=== PATIENT | male | born 1930 | race Asian ===

== ENCOUNTER 2018-07-03 14:47 | Emergency (ER) | payer OTHER ==
[2018-07-03] MEDS ORDERED: NORepinephrine 8MG/250 ML (PMX 250 ML IV (15:00)
[2018-07-03] MEDS ORDERED: DOPamine-D5W 1.6 MG/ML 250 ML IV (15:00)
[2018-07-03] MEDS: SODIUM CHLORIDE 0.9% 1L BAG IV* (15:00)
[2018-07-03] MEDS: NORepinephrine 8MG/250 ML (PMX 250 ML IV (15:30)
[2018-07-03 15:46] LABS: WHITE BLOOD COUNT 15.6 10^3/ul (4.8-10.8)
[2018-07-03 15:46] LABS: ABNORMAL IP MESSAGE 1; HEMATOCRIT 27.8 % (42.0-52.0); HEMOGLOBIN 7.8 g/dl (14.0-18.0); MEAN CORPUSCULAR HEMOGLOBIN 30.1 pg (29.0-33.0); MEAN CORPUSCULAR HGB CONC 28.1 g/dl (32.0-37.0); MEAN CORPUSCULAR VOLUME 107.3 fl (82.0-101.0); NUCLEATED RED BLOOD CELLS% 0.2 /100WBC (0.0-0.0); PLATELET COUNT 280 10^3/UL (140-415); POSITIVE DIFF @See below; RED BLOOD COUNT 2.59 10^6/ul (4.70-6.10)
[2018-07-03 15:48] LABS: ADD MAN DIFF? YES
[2018-07-03 16:06] LABS: ALANINE AMINOTRANSFERASE 54 IU/L (13-69); ALBUMIN 2.8 g/dl (3.3-4.9); ALBUMIN/GLOBULIN RATIO 0.68; ALKALINE PHOSPHATASE 92 IU/L (42-121); ANION GAP 19 (5-13); BILIRUBIN,INDIRECT 0.3 mg/dl (0-1.1); BILIRUBIN,TOTAL 0.3 mg/dl (0.2-1.3); BLOOD UREA NITROGEN 48 mg/dl (7-20); CALCIUM 8.4 mg/dl (8.4-10.2); CARBON DIOXIDE 28 mmol/L (21-31); CHLORIDE 99 mmol/L (97-110); CREATININE 0.92 mg/dl (0.61-1.24); LIPASE 319 U/L (23-300); MAGNESIUM 2.8 mg/dl (1.7-2.5); PHOSPHORUS 7.8 mg/dl (2.5-4.9); POTASSIUM 3.3 mmol/L (3.5-5.1); SODIUM 146 mmol/L (135-144); TOTAL PROTEIN 6.9 g/dl (6.1-8.1)
[2018-07-03 16:09] LABS: INR 1.25; PROTIME 15.8 Sec (11.9-14.9); PT RATIO 1.2
[2018-07-03 16:10] LABS: BAND NEUTROPHILS #M 5.4 10^3/ul (0.0-0.6); BAND NEUTROPHILS % (M) 35 % (0-4); ERYTHROBLAST% (NRBC) (M) 1 % (0-0); HYPOCHROMASIA 1+ (0-0); LYMPHOCYTES #M 0.1 10^3/ul (0.8-2.9); LYMPHOCYTES % (M) 1 % (15-51); METAMYELOCYTES #M 0.4 10^3/ul (0.0-0.0); METAMYELOCYTES %M 3 % (0-0); MONOCYTE #M 0.6 10^3/ul (0.3-0.9); MONOCYTES % (M) 4 % (0-11); MYELOCYTES #M 0.4 10^3/ul (0.0-0.0); MYELOCYTES % (M) 3 % (0-0); PARTIAL THROMBOPLASTIN TIME 32.9 Sec (23.0-35.0); PLATELET ESTIMATE NORMAL; POLYCHROMASIA 1+ (0-0); SEG NEUT #M 9.3 10^3/ul (1.6-7.5); SEGMENTED NEUTROPHILS (M) % 54 % (39-77); SMUDGE%M 1 % (0-0)
[2018-07-03 16:11] LABS: GLUCOSE 28 mg/dl (70-220)
[2018-07-03] MEDS ORDERED: DEXTROSE 50% 50 ML SYRINGE (16:12)
[2018-07-03 16:13] LABS: ASPARTATE AMINO TRANSFERASE 101 IU/L (15-46)
[2018-07-03 16:14] LABS: TROPONIN-I 0.067 ng/ml (0.000-0.120)
[2018-07-03] MEDS: DEXTROSE 50% 50 ML SYRINGE IV (16:15)
[2018-07-03 16:23] LABS: AADO2 Arterial 586.7 mmHg (7.0-24.0); Allen Test ACCEPTAB; Arterial Base Excess 2.4 mmol/L (-3.0-3); Arterial Blood Gas Oxygen Sat 83.9 mmHG (95.0-100.0); Arterial COHb 0.2 % (0.0-3.0); Arterial Fraction of Oxyhgb 83.5 % (93.0-99.0); Arterial HCO3 30.2 mmol/L (22.0-26.0); Arterial MetHb 0.3 % (0.0-1.5); MODE VENT - AC; Site Left Radial
[2018-07-03 16:33] LABS: LACTIC ACID 13.8 mmol/L (0.5-2.0)
[2018-07-03] MEDS ORDERED: SOD CHLORIDE 0.9% 0 ML IV (16:36)
[2018-07-03] MEDS: CEFEPIME 2GM/50 ML (PMX) 50 ML IVPB (16:55)
[2018-07-03] MEDS: PROPOFOL 100 ML IV (17:02)
[2018-07-03] MEDS: VANCOMYCIN 1 GM (PMX) 250 ML IVPB (17:28)
[2018-07-03] MEDS: FENTAnyl 50 MCG/ML VIAL IV (17:28)
[2018-07-03] MEDS ORDERED: FENTAnyl 50 MCG/ML VIAL IV (17:30)
[2018-07-03] MEDS: FENTAnyl (DRIP) 1000 mcg/100mL 100 ML IV (17:41)
[2018-07-03] MEDS: MIDAZOLAM 1 MG/ML 2 ML INJ IV (18:55)
[2018-07-03] MEDS: MIDAZOLAM (DRIP) 50 mg/50 mL 50 ML IV (19:17)
[2018-07-03 20:05] LABS: LACTIC ACID 15.4 mmol/L (0.5-2.0)
== END 2018-07-03 22:16 | disposition expired ==
LOC: E/R 14:47
DX: I46.9 Cardiac arrest, cause unspecified (principal); R65.21 Severe sepsis with septic shock; A41.9 Sepsis, unspecified organism; J18.9 Pneumonia, unspecified organism; D64.9 Anemia, unspecified; J96.20 Acute and chronic respiratory failure, unspecified whether with hypoxia or hypercapnia; G20 Parkinson's disease; E16.2 Hypoglycemia, unspecified; R40.2112 Coma scale, eyes open, never, at arrival to emergency department; R40.2212 Coma scale, best verbal response, none, at arrival to emergency department; R40.2312 Coma scale, best motor response, none, at arrival to emergency department; Z87.891 Personal history of nicotine dependence
CPT/HCPCS: 36415; 36600; 70450; 71045; 80053; 82803; 82962; 83605; 83690; 83735; 84100; 84484; 85025; 85610; 85730; 86850; 86900; 86901; 86920; 87040; 92950; 93005; 94002; 96365; 96375; 99291-25